=== PATIENT | female | born 1980 | race Caucasian/White ===

== ENCOUNTER 2018-12-16 08:40 | Emergency (ER) | payer SELFPAY ==
[2018-12-16 08:44] VITALS: BP 147/106
[2018-12-16] MEDS ORDERED: HYDROCODONE/ACETAMINOPHEN 5-325 MG TABLET PO ONE (08:58)
[2018-12-16] MEDS ORDERED: PENICILLIN V POTASSIUM 500 MG TABLET PO ONE (08:58)
--- NOTE | 2018-12-16 12:34 | ER Document Report ---
Entered by ANITRA HOYOS SCRIBE 12/16/18 0854 Acting as scribe for:GUMARO GUERRERO MD ED Oral Problem - General Chief Complaint: Jaw Pain Stated Complaint: JAW PAIN Time Seen by Provider: 12/16/18 08:46 Mode of Arrival: Ambulatory Information source: Patient Notes: 38-year-old female that presents to the emergency department today with complaints of dental pain for the last x2 days. Patient has a history of poor dentition but states she has a "phobia" when told that she should probably have her teeth extracted. Patient states that she took two cephalexin yesterday that she had left over from a previous infection. TRAVEL OUTSIDE OF THE [place] IN LAST 30 DAYS: No - Related Data Allergies/Adverse Reactions: tramadol HCl [From [place]] Allergy (Verified 12/16/18 08:41) Past Medical History - General Information source: Patient - Social History Smoking Status: Current Every Day Smoker Cigarette use (# per day): Yes Frequency of alcohol use: None Drug Abuse: None Lives with: Family Family History: None Past Surgical History: Reports: Hx Abdominal Surgery - LAP - Immunizations Immunizations up to date: Yes Hx Diphtheria, Pertussis, Tetanus Vaccination: Yes Review of Systems - Review of Systems Constitutional: No symptoms reported EENT: See HPI, Mouth pain, Mouth swelling, Dental problem Cardiovascular: No symptoms reported Respiratory: No symptoms reported Gastrointestinal: No symptoms reported Genitourinary: No symptoms reported Female Genitourinary: No symptoms reported Musculoskeletal: No symptoms reported Skin: No symptoms reported Hematologic/Lymphatic: No symptoms reported Neurological/Psychological: No symptoms reported -: Yes All other systems reviewed and negative Physical Exam - Vital signs Vitals: Temp Pulse Resp BP Pulse Ox 98.7 F 106 H 20 147/106 H 99 12/16/18 08:42 12/16/18 08:42 12/16/18 08:42 12/16/18 08:42 12/16/18 08:42 - Notes Notes: Physical Exam: General: Alert, smells heavily of cigarette smoke. HEENT: Normocephalic. Atraumatic. PERRL. Extraocular movements intact. Oropharynx clear. Canine #27 is severely decayed with the anterior half of the tooth missing. This area is swollen and tender with palpation. No abscess. Neck: Supple. Non-tender. Respiratory: No respiratory distress. Rhonchi with forced cough consistent with smoking history. Cardiovascular: Regular rate and rhythm. Abdominal: Normal Inspection. Non-tender. No distension. Normal Bowel Sounds. Back: No gross abnormalities. Extremities: Moves all four extremities. Upper extremities: Normal inspection. Normal ROM. Lower extremities: Normal inspection. No edema. Normal ROM. Neurological: Normal cognition. AAOx4. Normal speech. Psychological: Normal affect. Normal Mood. Skin: Warm. Dry. Normal color. Course - Vital Signs Vital signs: Temp Pulse Resp BP Pulse Ox 98.7 F 106 H 20 147/106 H 99 12/16/18 08:42 12/16/18 08:42 12/16/18 08:42 12/16/18 08:42 12/16/18 08:42 Discharge - Discharge Clinical Impression: Toothache Condition: Stable Disposition: HOME, SELF-CARE Additional Instructions: Dental Infection or Abscess You have an infection, perhaps an abscess (pus formation) of the gum around one of your teeth, which is probably decayed. If there is an abscess, it may drain on its own or it may need to be opened or lanced. Severe swelling or drainage around a tooth usually means a deep dental abscess which usually requires evaluation and treatment by a dentist or oral surgeon. Antibiotics may be prescribed while awaiting dental treatment. If you develop high fever with chills, worsening pain, or increasing swelling in the area, see a dentist or oral surgeon immediately or return to the Emergency Department immediately. Take the medication as prescribed. Use warm soaks to the painful swollen jaw area. Follow-up with a dentist in the next week for definitive care of your decayed tooth. RETURN TO THE EMERGENCY ROOM IF ANY NEW OR WORSENING SYMPTOMS. Prescriptions: Hydrocodone/Acetaminophen [[place] 5-325 mg Tablet] 1 tab PO Q4 PRN #10 tablet PRN Reason: Penicillin V Potassium [Penicillin Vk 500 mg Tablet] 500 mg PO QID #28 tablet Scribe Attestation: 12/16/18 08:59 I personally performed the services described in the documentation, reviewed and edited the documentation which was dictated to the scribe in my presence, and it accurately records my words and actions. I personally performed the services described in the documentation, reviewed and edited the documentation which was dictated to the scribe in my presence, and it accurately records my words and actions.
== END 2018-12-16 09:13 | disposition home or self-care (01) ==
LOC: ER 08:40
DX: K08.9 Disorder of teeth and supporting structures, unspecified (principal); R68.84 Jaw pain; F17.210 Nicotine dependence, cigarettes, uncomplicated
CPT/HCPCS: 99283